=== PATIENT | female | born 1995 | race Caucasian/White ===

== ENCOUNTER 2018-07-05 23:59 | Inpatient (IN) ==
[2018-07-06] MEDS ORDERED: BUTORPHANOL 2 MG/ML VIAL IV PRN (00:09)
[2018-07-06] MEDS ORDERED: ONDANSETRON 4 MG/2 ML VIAL IV PRN (00:09)
[2018-07-06] MEDS ORDERED: LACTATED RINGERS 500 ML IV PRN (00:09)
[2018-07-06] MEDS ORDERED: MEPERIDINE 50 MG/1 ML VIAL IV PRN (00:09)
[2018-07-06 00:56] LABS: Eosinophils % 1.7 % (0.00-10.9); Hematocrit 30.9 VOL% (35.7-47.0); Hemoglobin 9.1 GM/DL (12.0-16.0); Mean Corpuscular HGB Conc 29.4 GM/DL (32-36); Mean Corpuscular Volume 75.6 FL (87-102); Mean Platelet Volume 10.6 FL (9.6-12.0); Monocytes % 9.5 % (1.7-12.7); Neutrophils % 67.8 % (38.7-73.9); Platelet Count 268 T/CUMM (130-400); Red Blood Count 4.09 MC/CUMM (3.8-5.5); Red Cell Distribution Width 15.3 % (9.3-17.3); White Blood Count 8.9 T/CUMM (4-12)
[2018-07-06 00:57] LABS: Basophils % 0.5 % (0.0-0.8); Eosinophils # 0.2 10*3/uL (0.0-0.87); Immature Granulocytes % 0.5 %; Immature Granulocytes Absolute 0.04 #; Lymphocytes # 1.8 10*3/uL (1.4-4.0)
[2018-07-06 01:06] LABS: INR 0.9; PT Patient Result 9.4 SECS; Partial Thromboplastin Time 26.8 SECS (0-40)
[2018-07-06 01:09] LABS: Alanine Aminotransferase 14 U/L (13-56); Albumin 2.6 G/DL (3.4-5.0); Alkaline Phosphatase 216 U/L (45-117); Aspartate Amino Transferase 13 U/L (0-37); Bilirubin,Direct < 0.100 MG/DL (0.0-0.20); Bilirubin,Total < 0.39 MG/DL (0.2-1.0); Blood Urea Nitrogen 6 MG/DL (7-18); Calcium 8.2 MG/DL (8.5-10.1); Glucose 85 MG/DL (74-106); Osmolality,Calculated 273.5 MOS/KG (273-304); Total Protein 6.1 G/DL (6.4-8.3); Uric Acid 3.8 MG/DL (2.6-6.0)
[2018-07-06] MEDS ORDERED: AMPICILLIN INJ 2,000 MG in SODIUM CHLORIDE 0.9% 100 ML IV ONE (01:22)
[2018-07-06] MEDS: LACTATED RINGERS 1,000 ML IV SCH ×3 (01:49→13:00)
[2018-07-06] MEDS: AMPICILLIN INJ 1,000 MG in SODIUM CHLORIDE 0.9% 100 ML IV SCH ×2 (06:15→11:03)
[2018-07-06] MEDS ORDERED: CITRIC ACID/SODIUM CITRATE 30 ML UDCUP PO ONE (08:12)
[2018-07-06] MEDS ORDERED: diphenhydrAMINE 50 MG/1 ML VIAL IV PRN ×2 (08:12)
[2018-07-06] MEDS ORDERED: ONDANSETRON 4 MG/2 ML VIAL IV ONE (08:12)
[2018-07-06] MEDS ORDERED: hydrOXYzine HCL 25 MG/1 ML VIAL IM PRN (08:12)
[2018-07-06] MEDS ORDERED: PROMETHAZINE 25 MG/1 ML VIAL IM ONE (08:12)
[2018-07-06] MEDS ORDERED: FAMOTIDINE 20 MG/2 ML VIAL IV ONE (08:12)
[2018-07-06] MEDS ORDERED: NALOXONE 0.4 MG/ML VIAL IV PRN (08:12)
[2018-07-06] MEDS ORDERED: ePHEDrine 50 MG/ML AMP IV PRN (08:12)
[2018-07-06] MEDS ORDERED: fentaNYL 2 MCG/ROPIV 0.2% EPID 100 ML EPIDURAL SCH (08:30)
[2018-07-06] MEDS ORDERED: OXYTOCIN/LR 20 UNIT/1,000 ML BAG IV ONE ×2 (10:52→11:02)
[2018-07-06] MEDS ORDERED: OXYTOCIN/LR 20 UNIT/1,000 ML BAG IV SCH (11:30)
[2018-07-06] MEDS ORDERED: LIDOCAINE 1% 50 ML VIAL ONE (11:49)
[2018-07-06] MEDS ORDERED: BUTORPHANOL 1 MG/ML VIAL ONE (11:49)
[2018-07-06] MEDS ORDERED: miSOPROStol 200 MCG TABLET ONE (11:50)
[2018-07-06] MEDS ORDERED: CARBOPROST TROMETHAMINE 250 MCG/ML AMP IM ONE (11:50)
[2018-07-06] MEDS ORDERED: WITCH HAZEL PADS 100/JAR TOP PRN (17:12)
[2018-07-06] MEDS ORDERED: RHO(D) IMMUNE GLOBULIN 300 MCG SYRINGE IM ONE (17:12)
[2018-07-06] MEDS ORDERED: ACETAMINOPHEN/CODEINE 300-30 MG TABLET PO PRN (17:12)
[2018-07-06] MEDS ORDERED: ACETAMINOPHEN 325 MG TABLET PO PRN (17:12)
[2018-07-06] MEDS ORDERED: BENZOCAINE 20%/MENTHOL 0.5% SPRAY 56 GM CAN TOP PRN (17:12)
[2018-07-06] MEDS ORDERED: HYDROCORTISONE 2.5% RECTAL CREAM 30 GM TUBE TOP PRN (17:12)
[2018-07-06] MEDS ORDERED: LANOLIN 50% CREAM 0.3 OZ TUBE TOP PRN (17:12)
[2018-07-06] MEDS ORDERED: oxyCODONE/ACETAMINOPHEN 5-325 MG TABLET PO PRN (17:12)
[2018-07-06] MEDS ORDERED: MEASLES/MUMPS/RUBELLA VACCINE 0.5 ML VIAL SUBCUT ONE (17:12)
[2018-07-06] MEDS ORDERED: DIPH/TET/ACEL PERT BOOSTER VACCINE 0.5 ML VIAL IM ONE (17:12)
[2018-07-06] MEDS ORDERED: BISACODYL 10 MG SUPP RECTAL PRN (17:12)
[2018-07-06] MEDS: oxyCODONE/ACETAMINOPHEN 5-325 MG TABLET PO PRN (19:05)
[2018-07-06] MEDS: DOCUSATE SODIUM 100 MG CAPSULE PO SCH (20:49)
[2018-07-06] MEDS: IBUPROFEN 800 MG TABLET PO PRN (20:54)
[2018-07-07] MEDS: oxyCODONE/ACETAMINOPHEN 5-325 MG TABLET PO PRN ×4 (01:14→22:47)
[2018-07-07 04:01] LABS: Basophils # 0.1 10*3/uL (0.0-0.2); Basophils % 0.4 % (0.0-0.8); Eosinophils # 0.1 10*3/uL (0.0-0.87); Eosinophils % 0.8 % (0.00-10.9); Hemoglobin 7.8 GM/DL (12.0-16.0); Immature Granulocytes % 0.5 %; Immature Granulocytes Absolute 0.06 #; Lymphocytes # 2.6 10*3/uL (1.4-4.0); Lymphocytes % 19.5 % (21.3-54.2); Mean Corpuscular Volume 74.9 FL (87-102); Mean Platelet Volume 10.4 FL (9.6-12.0); Monocytes % 10.3 % (1.7-12.7); Neutrophils % 68.5 % (38.7-73.9); Platelet Count 228 T/CUMM (130-400); Red Blood Count 3.47 MC/CUMM (3.8-5.5); Red Cell Distribution Width 15.7 % (9.3-17.3); White Blood Count 13.2 T/CUMM (4-12)
[2018-07-07] MEDS: IBUPROFEN 800 MG TABLET PO PRN ×2 (07:17→19:40)
[2018-07-07] MEDS: DOCUSATE SODIUM 100 MG CAPSULE PO SCH ×2 (08:00→21:08)
[2018-07-07] MEDS ORDERED: FERROUS SULFATE 325 MG TABLET PO SCH (09:00)
[2018-07-07] MEDS ORDERED: SODIUM CHLORIDE 0.9% 1,000 ML IV PRN (09:15)
[2018-07-07] MEDS: FUROSEMIDE 40 MG TABLET PO SCH ×2 (15:51→22:00)
[2018-07-07 18:35] LABS: Hemoglobin 10.3 GM/DL (12.0-16.0)
[2018-07-07] MEDS: FERROUS SULFATE 325 MG TABLET PO SCH (21:08)
[2018-07-08 06:00] LABS: Hematocrit 31.7 VOL% (35.7-47.0); Hemoglobin 9.7 GM/DL (12.0-16.0)
[2018-07-08] MEDS: FUROSEMIDE 40 MG TABLET PO SCH (06:08)
[2018-07-08 07:13] VITALS: BP 104/69
[2018-07-08] MEDS: FERROUS SULFATE 325 MG TABLET PO SCH (08:45)
[2018-07-08] MEDS: DOCUSATE SODIUM 100 MG CAPSULE PO SCH (08:45)
[2018-07-08] MEDS: IBUPROFEN 800 MG TABLET PO PRN (10:33)
== END 2018-07-08 11:55 | disposition home or self-care (01) | DRG 806 ==
LOC: N.LDOUT 23:59 → N.LD 07-06 00:03 → N.OB 07-06 17:00
PROVIDERS: ADMIT Obstetrics & Gynecology; ATTEND Obstetrics & Gynecology